=== PATIENT | male | born 1990 | race Caucasian/White ===

== ENCOUNTER 2024-03-09 10:47 | Outpatient (CLI) | payer BC, SELFPAY ==
[2024-03-11 12:19] LABS: Immunoglobulin A 93 mg/dL (47-310); TTG IGA AB <1.0 U/mL
== END 2024-03-09 10:48 | disposition home or self-care (01) ==
LOC: ANHLAB 10:48
PROVIDERS: PCP Clinical Nurse Specialist; Visit Provider Nurse Practitioner Family
DX: R19.7 Diarrhea, unspecified (principal)
CPT/HCPCS: 36415; 82784; 86364

== ENCOUNTER 2024-04-07 16:25 | Outpatient (CLI) | payer BC, SELFPAY ==
--- NOTE | ~2024-04-07 | CT_ITS ---
EXAMINATION: CT sinus wo con DATE: 04/07/2024 16:58 INDICATION: Recurrent maxillary sinusitis TECHNIQUE: Computed tomography (CT) of the paranasal sinuses was performed without intravenous contra st. The dose-length product was 340.69 mGy-cm. Automated exposure control and iterative reconstructio n technique were employed. COMPARISON: None FINDINGS: There is mucosal thickening of the left maxillary sinus with possible underlying mucous ret ention cyst. No the left maxillary sinus is largely opacified. Right ostiomeatal unit is partially oc cluded by soft tissue. Rightward nasal septal deviation. Minimal mucosal thickening right maxillary s inus. Mastoids are pneumatized. IMPRESSION: 1. Moderate maxillary sinus disease, left greater than right. Reviewed, dictated and finalized at location B.
== END 2024-04-07 16:26 | disposition home or self-care (01) ==
PROVIDERS: PCP Clinical Nurse Specialist; Visit Provider Otolaryngology
DX: J01.01 Acute recurrent maxillary sinusitis (principal); G47.33 Obstructive sleep apnea (adult) (pediatric); J32.0 Chronic maxillary sinusitis
CPT/HCPCS: 70486

== ENCOUNTER 2024-04-29 09:03 | Outpatient (CLI) | payer BC, SELFPAY ==
--- NOTE | 2024-05-13 10:05 | WPDHOMESLEEP ---
Sleep Study - Home Unattended Date of Study: 04/29/24 Ordering Provider: To Cavazos M.D. Interpreting Provider: Nasrin Wayne MD Home Sleep Study Type: Watch PAT Height: 1.91 m Weight: 95.254 kg Body Mass Index: 26.2 Neck Circumference (inches): 16 Anderson: 13 Reason for Sleep Study Loud snoring, excessive daytime sleepiness, witnessed apneas, disrupted sleep Sleep History Brian Chan is a 33-year-old man referred by Dr. Cavazos, ENT home because the patient has nasal congestion with sinus drainage, and he reports difficulty sleeping at night due to snoring and airway obstruction airway obstruction so severe that his cannot sleep in the same bedroom. He has daytime fatigue and difficulties with excessive daytime sleepiness. This is been a chronic problem. There is a positive family history of an immediate blood relative with obstructive sleep apnea. He has allergies, GERD and IBS. In addition to loud snoring, he chokes and gasps at night. He has morning headaches and wakes with a dry mouth. He has nocturnal heartburn. He does not awaken at night to go to the bathroom. He does not have more difficulties breathing on his back compared to his side. His normal bedtime is 11:00 p.m. during the week and on days off his bedtime may be as late as 2:00 a.m.. It takes him 15 minutes to fall asleep. He spends approximately 8 hours in bed. He estimates 7-1/2 hours of sleep on nights prior to work days and 7 hours of sleep on his days off. His sleep is a little restorative on his days off and he does take planned naps on his days off lasting less than 1 hour. He has more than 3 awakenings during the night. He wakes with an alarm at 6:30 a.m.. He does not have difficulty falling asleep or returning to sleep after his multiple awakenings. He does not use any sedatives at night. He does not have anxiety about going to sleep. He does not have complaints of grinding his teeth at night, clenching his jaw goods, uncomfortable feelings in his legs before sleep or excessive kicking. He is drowsy while driving. He does not work rotating shifts. Tobacco: 6-20 cigarettes per day Caffeine: more than 5 caffeinated beverages daily Alcohol: Not regularly; his social history indicates some nights of heavier consumption PMFSH Past Medical History Medical History Allergies GERD (gastroesophageal reflux disease) IBS (irritable bowel syndrome) Family History Family History (Updated 05/13/24 @ 10:17 by Nasrin Wayne MD) Father Skin cancer Diabetes mellitus Hypertension Heart disease Mother Heart disease Grandparent Hypertension Heart disease Cerebrovascular accident Other Obstructive sleep apnea Social History Social History Social History: Caffeine-daily Smoking status: Current every day smoker Tobacco type: cigarettes Alcohol intake: current Alcohol use details: Whiskey, binge drinks Substance use: never Substance use type: does not use Do You Feel Safe in your Home?: Yes Lack of Transportation: No Lack of Food: Never True Current Housing: I Have Housing Concerned About Future Housing: No Difficulty Paying Gas/Electric Bills: No Difficulty Paying for Meds: No Currently Unemployed: No Education: High School Diploma/GED Difficulty w/ Childcare or Family Care: No Living arrangements: with family Occupation/Education: occupation Additional occupation/education comments: [employer] Gender identity (if verbalized by the patient): Male Agree to blood products: Yes Medications Home Medications Medication Instructions Recorded Confirmed Type cetirizine 10 mg tablet (Zyrtec) 10 mg PO DAILY PRN 01/28/24 04/20/24 History cholecalciferol (vitamin D3) 25 25 mcg PO DAILY 01/28/24 04/20/24 History mcg (1,000 unit) capsule psyllium husk 0.4 gram capsu
[2024-05-13 10:43] VITALS: BMI 26.2
== END 2024-04-30 11:51 | disposition home or self-care (01) ==
LOC: ANHCSM 09:04
PROVIDERS: PCP Clinical Nurse Specialist; Visit Provider Otolaryngology
DX: G47.33 Obstructive sleep apnea (adult) (pediatric) (principal)
CPT/HCPCS: 95800

== ENCOUNTER 2025-03-18 13:47 | Outpatient (CLI) | payer BC, SELFPAY ==
--- NOTE | ~2025-03-18 | CT_ITS ---
CT sinus wo con Ordering provider: Juan Schulte, History: . ACUTE RECURRENT PANSINUSITIS . Comparison: April 07, 2024 Technique: Thin slice Scans CT of the paranasal sinuses was performed with coronal and sagittal refor matted images. No IV contrast. . Automated exposure control and iterative reconstruction technique w ere employed. The dose-length product was 293.24 mGy-cm. Findings: NASAL SEPTUM: midline. OSTEOMEATAL UNITS: Bilaterally patent. NASAL TURBINATES AND NASOPHARYNX: Normal. PARANASAL SINUSES: Bilateral maxillary sinus disease. Postoperative changes in the medial wall of bot h maxillary sinuses. Otherwise, Well aerated. VISUALIZED MASTOIDS: Normal as visualized. BONES: Normal. SUPERFICIAL SOFT TISSUES/VISUALIZED BRAIN PARENCHYMA: Normal. IMPRESSION: Bilateral maxillary sinus disease more postoperative changes in the medial wall of both maxillary sin uses. Reviewed, dictated and finalized at location A. IMPRESSION: Bilateral maxillary sinus disease more postoperative changes in the medial wall of both maxillary sinuses.
== END 2025-03-18 13:48 | disposition home or self-care (01) ==
PROVIDERS: PCP Clinical Nurse Specialist; Visit Provider Otolaryngology
DX: J01.41 Acute recurrent pansinusitis (principal); J30.89 Other allergic rhinitis; J34.1 Cyst and mucocele of nose and nasal sinus; J33.1 Polypoid sinus degeneration; Z98.890 Other specified postprocedural states
CPT/HCPCS: 70486